=== PATIENT | female | born 1955 | race African-American/Black ===

== ENCOUNTER → 2016-07-06 | Outpatient (CLI) | payer MEDICARE, OTHER ==
[2016-03-11 11:45] VITALS: BP 128/85
[~2016-07-06] MED LIST: ALBU2.5V14 IH; ALEN70TA3 PO; ARIP5TAB6 PO; ATOR20TA PO; CYCL10TA2 PO; DEXT10TA23 PO; DULO20CA PO; DULO30CA2 PO; DULO60CA6 PO; FLUT250D IH; HYDR-2762 PO; IBUP-1060 PO; LIDO700A4 TP; MULT-658 PO; NAPR220C4 PO; OXYC-250 PO; OXYC15TA PO; PROVENTIL HFA6.7 GM IH; SIMV10TA3 PO; TRAZ100T12 PO; TRAZ50TA15 PO; VALIUM10 MG PO
--- NOTE | 2016-07-06 13:26 | KCIC ---
PROCEDURE MRI lumbar spine without contrast HISTORY Low back pain getting worse in recent months TECHNIQUE Sagittal and axial T1 and T2 and sagittal STIR images were acquired of the lumbar spine. Contrast: None COMPARISON August 02, 2014 FINDINGS There is again negligible anterior spondylolisthesis at L3-4. Lumbar vertebral body stature is maintained. Conus terminates at the mid aspect of L2. There is again mild to moderate degenerative disc disease at L3-4 minimally at L4-5. There is no significant focal marrow edema. There is nonspecific edema of the posterior subcutaneous fat of the lower back. L2-3: Spinal canal and neural foramina are adequate. There is mild facet hypertrophic change. L3-4: There is mild facet hypertrophic change and prominence of posterior epidural fat, mild buckling of the ligamentum flavum. There is very mild narrowing of the posterior left neural foramen, right neural foramen adequate. Spinal canal is adequate. L4-5: There is mild facet degenerative change greater on the left. There is minimal narrowing of the left neural foramen. There is now a shallow proximal extraforaminal left protrusion which contacts the proximal extraforaminal left L4 nerve root. Right neural foramen is adequate. Spinal canal is adequate. L5-S1: Spinal canal and neural foramina are adequate. IMPRESSION 1. There is now shallow proximal left extraforaminal protrusion at L4-5 with contact of the extraforaminal left L4 nerve root. 2. There is no new significant lumbar spinal stenosis. 3. There is again mild to moderate degenerative disc disease at L3-4, negligible anterior spondylolisthesis at this level. Electronically signed by: Phoenix Omalley MD (Jul 06, 2016 13:25:17)
== END | disposition home or self-care (01) ==
LOC: KCIC MRI 11:58
PROVIDERS: ATTEND Neurological Surgery
DX: M51.36 Other intervertebral disc degeneration, lumbar region (principal); M51.26 Other intervertebral disc displacement, lumbar region; M43.16 Spondylolisthesis, lumbar region
CPT/HCPCS: 72148

== ENCOUNTER → 2016-11-08 | Outpatient (CLI) | payer MEDICARE, OTHER ==
[2016-03-11 11:45] VITALS: BP 128/85
[~2016-11-08] MED LIST changes: +ARIP5TAB13 PO; -ARIP5TAB6 PO; -OXYC-250 PO; +OXYC-328 PO
[2016-11-08] MEDS: GADOBUTROL 10 MMOL/10 ML VIAL IV ONE (11:34)
--- NOTE | 2016-11-08 13:44 | KCIC ---
EXAM: MRI LUMBAR SPINE WITH AND WITHOUT CONTRAST. HISTORY: Low back pain and bilateral lower extremity radiculopathy. TECHNIQUE: Magnetic resonance images of the lumbar spine were obtained before and after the intravenous administration of 8 mL Gadavist. COMPARISON: July 06, 2016. FINDINGS: Alignment is normal. No fractures are identified. Degenerative disc disease is moderate at L3-4 and mild at L4-5. The conus is at L2 and appears normal. One enhancing left sacral nerve root appears to be associated with the S1 level. This may be an incidental finding or indicate radiculitis. At L1-2, there is a small posterior disc bulge. There is no stenosis. At L2-3, there is a small posterior disc bulge. Facet and ligamentum flavum hypertrophy is moderate. There is no significant stenosis. At L3-4, there is a small to moderate posterior disc bulge. Facet and ligamentum flavum hypertrophy is moderate. There is only mild bilateral neural foraminal narrowing. At L4-5, there is a moderate posterior disc bulge. There is likely a small central annular tear inferiorly. Facet and ligamentum flavum hypertrophy is mild to moderate. A small left foraminal protrusion abuts the exiting left L4 nerve root. There is only mild bilateral neural foraminal narrowing. At L5-S1, there is a small posterior disc bulge. Facet hypertrophy is mild to moderate. There is no significant stenosis. IMPRESSION: 1. At L4-5, a small left foraminal protrusion abuts the exiting left L4 nerve root, unchanged. A small annular tear centrally at this level is suspected. 2. Diffuse moderate facet osteoarthritis contributes to only mild neural foraminal narrowing bilaterally from L3 through L5. 3. Degenerative disc disease is moderate at L3-4 and mild at L4-5. Electronically signed by: Yael Cullen MD (11/08/2016 1:40 PM) [id number]
== END | disposition home or self-care (01) ==
LOC: KCIC MRI 10:47
PROVIDERS: ATTEND Neurological Surgery
DX: M51.16 Intervertebral disc disorders with radiculopathy, lumbar region (principal)
CPT/HCPCS: 72158; A9585

== ENCOUNTER → 2016-11-22 | Outpatient (CLI) | payer MEDICARE, OTHER ==
[2016-03-11 11:45] VITALS: BP 128/85
== END | disposition home or self-care (01) ==
LOC: PNCL 11:08
PROVIDERS: ATTEND Anesthesiology
DX: M54.16 Radiculopathy, lumbar region (principal); M51.36 Other intervertebral disc degeneration, lumbar region
CPT/HCPCS: G0463

== ENCOUNTER → 2016-12-26 | Outpatient (CLI) | payer MEDICARE, OTHER ==
[2016-03-11 11:45] VITALS: BP 128/85
--- NOTE | 2016-12-26 17:29 | RAD ---
DATE: 12/26/2016 EXAM: MAMMO HINA SCREENING BILATERAL HISTORY: 61-year-old female for routine screening. History of right breast biopsy with benign biopsy in 1975. COMPARISON: Mammograms from 2016, 2010 This study was interpreted with the benefit of Computerized Aided Detection (CAD). FINDINGS: Breast Density: HETERO The breast parenchyma Is heterogeneiously dense, which could reduce sensitivity of mammography. Breast parenchyma level C. Scattered diffuse bilateral benign-appearing calcifications. No morphologically suspicious calcifications. Bilateral stable nodular densities are seen in the breast. No dominant spiculated mass or area of architectural distortion. IMPRESSION: No mammographic evidence of malignancy. Stable mammogram compared to 2016. BI-RADS CATEGORY: 2 BENIGN FINDING(S) RECOMMENDED FOLLOW-UP: 12M 12 MONTH FOLLOW-UP PQRS compliance statement: Patient information was entered into a reminder system with a target due date 12/26/2017 for the next mammogram. Mammography is a sensitive method for finding small breast cancers, but it does not detect them all and is not a substitute for careful clinical examination. A negative mammogram does not negate a clinically suspicious finding and should not result in delay in biopsying a clinically suspicious abnormality. "Our facility is accredited by the [employer] Mammography Program."
== END | disposition home or self-care (01) ==
LOC: KCIC MAMMO 14:06
PROVIDERS: ATTEND Internal Medicine
DX: Z12.31 Encounter for screening mammogram for malignant neoplasm of breast (principal)
CPT/HCPCS: 77063; G0202; 77067

== ENCOUNTER → 2017-03-20 | Outpatient (CLI) | payer MEDICARE, OTHER ==
[2016-03-11 11:45] VITALS: BP 128/85
--- NOTE | 2017-03-20 17:03 | KCIC ---
RIGHT HIP AP AND LATERAL Clinical Indication: Right hip pain x3-4 weeks. No known injury. Comparison: None. Findings: There is no acute fracture or dislocation. Mild degenerative change for patient age. Visualized pelvic bones appear intact. There is no soft tissue abnormality or radiopaque foreign body. IMPRESSION: No acute fracture or dislocation. Electronically signed by: Ben Grace MD (03/20/2017 5:00 PM) [id number]
== END | disposition home or self-care (01) ==
LOC: KCIC 15:30
PROVIDERS: ATTEND Nurse Practitioner Adult Health
DX: M25.551 Pain in right hip (principal)
CPT/HCPCS: 73502

== ENCOUNTER → 2017-05-24 | Outpatient (CLI) | payer MEDICARE, OTHER | END | disposition home or self-care (01) | LOC: KCIC 13:49 | DX: M25.551 Pain in right hip (principal); M25.552 Pain in left hip | CPT/HCPCS: 73521 ==

== ENCOUNTER → 2017-08-22 | Outpatient (CLI) | payer MEDICARE, OTHER | END | disposition home or self-care (01) | LOC: KCIC 11:20 | DX: M19.012 Primary osteoarthritis, left shoulder (principal); M19.011 Primary osteoarthritis, right shoulder; M25.562 Pain in left knee; M25.561 Pain in right knee | CPT/HCPCS: 73030; 73560 ==

== ENCOUNTER → 2019-02-05 | Outpatient (CLI) | payer MEDICARE, OTHER ==
[2016-03-11 11:45] VITALS: BP 128/85
[~2019-02-05] MED LIST changes: +ALBU2.5V8 IH; -HYDR-2762 PO; +HYDR-2765 PO; -OXYC-328 PO; +OXYC1TAB22 PO; -PROVENTIL HFA6.7 GM IH; +TRAZ-118 PO; +TRAZ-86 PO; -TRAZ100T12 PO; -TRAZ50TA15 PO
--- NOTE | 2019-02-06 18:38 | RAD ---
DATE: 02/05/2019 EXAM: MAMMO HINA SCREENING BILATERAL HISTORY: Routine screening COMPARISON: 12/26/2016 mammographic exam This study was interpreted with the benefit of Computerized Aided Detection (CAD). Breast Density: DENSE The breast parenchyma is dense, which could reduce the sensitivity of mammography. Breast parenchyma level density D. FINDINGS: Multiple small masses bilaterally are present and stable. Benign-appearing calcifications are present. No suspicious calcification, suspicious new mass, or distortion. IMPRESSION: Stable BI-RADS CATEGORY: 2 BENIGN FINDING(S) RECOMMENDED FOLLOW-UP: 12M 12 MONTH FOLLOW-UP PQRS compliance statement: Patient information was entered into a reminder system with a target due date for the next mammogram. Mammography is a sensitive method for finding small breast cancers, but it does not detect them all and is not a substitute for careful clinical examination. A negative mammogram does not negate a clinically suspicious finding and should not result in delay in biopsying a clinically suspicious abnormality. "Our facility is accredited by the [employer] Mammography [employer]."
== END | disposition home or self-care (01) ==
LOC: MAMMO 12:32
PROVIDERS: ATTEND Internal Medicine
DX: N63.20 Unspecified lump in the left breast, unspecified quadrant (principal); N63.10 Unspecified lump in the right breast, unspecified quadrant; N64.89 Other specified disorders of breast; Z12.31 Encounter for screening mammogram for malignant neoplasm of breast
CPT/HCPCS: 77063; 77067

== ENCOUNTER → 2020-04-12 | Outpatient (CLI) | payer MEDICARE, OTHER ==
[2016-03-11 11:45] VITALS: BP 128/85
[~2020-04-12] MED LIST changes: -ALBU2.5V8 IH; -OXYC15TA PO; +OXYC15TA3 PO; +PROVENTIL HFA6.7 GM IH; +SIMV10TA15 PO; -SIMV10TA3 PO; +TRAZ-123 PO; -TRAZ-86 PO
--- NOTE | 2020-04-13 20:21 | KCIC ---
BILATERAL SCREENING MAMMOGRAM, 3-D History: Routine screening. Comparison: Bilateral mammogram February 05, 2019 and prior years. Technique: MLO and CC digital tomosynthesis (3D) images obtained. Radiologist reviewed these images on dedicated workstation. Findings: Breast Tissue Density D :The breasts are extremely dense, which lowers the sensitivity of mammography. In the bilateral breasts there are several well-circumscribed masses, scattered benign calcifications, and glandular nodularity that are stable. There are no dominant masses, suspicious microcalcifications or architectural distortion. IMPRESSION: No mammographic evidence of malignancy. Recommend routine screening. BI-RADS category 2: Benign findings. The images were reviewed with computer-aided detection. Patient information is entered into reminder system with a target due date for the next screening mammogram. Mammography is the most sensitive method for finding small breast cancers, but it does not detect them all and is not a substitute for careful clinical examination. A negative mammogram does not negate a clinically suspicious finding and should not result in delay in biopsying a clinically suspicious abnormality. "Our facility is accredited by the [employer] Mammography Program." Electronically signed by: Ben Grace MD (04/13/2020 8:18 PM) [email or web address]
== END ==
LOC: KCIC 13:44
PROVIDERS: ATTEND Obstetrics & Gynecology
DX: Z12.31 Encounter for screening mammogram for malignant neoplasm of breast (principal); N64.89 Other specified disorders of breast
CPT/HCPCS: 77063; 77067

== ENCOUNTER → 2020-10-04 | Outpatient (CLI) | payer MEDICARE, OTHER ==
[2016-03-11 11:45] VITALS: BP 128/85
--- NOTE | 2020-10-04 17:06 | KCIC ---
XR CERVICAL SPINE 4-5V 10/04/2020 3:30 PM INDICATION: Worsening left-sided neck pain COMPARISON: None available. TECHNIQUE: Lateral, bilateral oblique, AP, odontoid and swimmer's view of the cervical spine are pro vided. FINDINGS: 1. Anterior cervical discectomy and fusion is identified from C4 through C6 with complete osseous fus ion. No fracture of the hardware. No lucency surrounding the hardware. 2. 1 mm retrolisthesis at C3 on C4. Mild disc height loss at C3-C4 and C6-C7. 3. Moderate to advanced osseous neural foraminal stenosis bilaterally at C6-C7. 4. Mild/moderate uncovertebral joint disease at C6-C7 with facet arthropathy. 5. No acute fracture. Lateral masses of C1 articulate appropriately with the C2 vertebral body. Dens is intact. Electronically signed by: Fela Menjivar MD (10/04/2020 5:03 PM) [id number]
== END ==
LOC: KCIC 15:22
PROVIDERS: ATTEND Family Medicine
DX: M47.812 Spondylosis without myelopathy or radiculopathy, cervical region (principal); M43.12 Spondylolisthesis, cervical region; M48.02 Spinal stenosis, cervical region
CPT/HCPCS: 72050

== ENCOUNTER → 2020-12-07 | Outpatient (CLI) | payer MEDICARE, OTHER ==
[2016-03-11 11:45] VITALS: BP 128/85
--- NOTE | 2020-12-07 15:05 | KCIC ---
EXAM: Cervical spine MRI without contrast. HISTORY: Pain. TECHNIQUE: Multiplanar, multisequence magnetic resonance imaging of the cervical spine was performed without contrast. COMPARISON: None. FINDINGS: There is instrumented intraspinal fusion and interbody fusion at C4-C6. There is minimal re trolisthesis of C3 on C4. There is degenerative endplate remodeling with disc space narrowing and ost eophytosis primarily at C3-C4 and C6-C7. There are endplate Schmorl's nodes. There are few osseous he mangiomas. There is no suspicious osseous lesion. There is slight deformation of the cervical spinal cord at C3-C4. There is no convincing cervical spinal cord signal abnormality to suggest myelomalacia or edema. At C2-C3, there is a disc bulge and right lateral predominant endplate osteophytosis. There is mild b ilateral facet arthropathy. There is no stenosis. At C3-C4, there are bilateral posterior lateral disc osteophyte complexes superimposed on a disc bulg e and endplate osteophytosis. There is [id number] bilateral facet arthropathy. There is uncover tebral arthropathy. There is mild to moderate bilateral foraminal stenosis. There is slight flattenin g of the ventral aspect of the spinal cord without significant central canal stenosis. At C4-C5, there is instrumented fusion. There is mild right and moderate left facet arthropathy. Ther e is no stenosis. At C5-C6, there is instrumented fusion. There is mild right and moderate left facet arthropathy. Ther e is mild right foraminal stenosis. At C6-C7, there is a disc bulge and endplate osteophytosis. There is mild bilateral facet arthropathy . There is uncovertebral arthropathy. There is moderate right and severe left foraminal stenosis. IMPRESSION: 1. Instrumented fusion at C4-C6. 2. Multilevel degenerative change, described in detail above. This is associated with [id number] e bilateral foraminal stenosis and slight flattening of the cervical spinal cord at C3-C4, mild right foraminal stenosis at C5-C6 and moderate right and severe left foraminal stenosis at C6-C7. No spina l cord lesion is seen. Electronically signed by: Roz Izquierdo MD (12/07/2020 3:03 PM) [id number]
== END ==
LOC: KCIC MRI 13:52
PROVIDERS: ATTEND Family Medicine
DX: M47.812 Spondylosis without myelopathy or radiculopathy, cervical region (principal); M48.02 Spinal stenosis, cervical region
CPT/HCPCS: 72141